=== PATIENT | male | born 2000 | race Caucasian/White ===

== ENCOUNTER 2022-04-02 10:09 | Day surgery (SDC) | payer OTHER ==
[~2022-04-02] VITALS: Ht 177.8 cm; Wt 71.5 kg
[2022-04-02 10:33] VITALS: BP 125/92; PULSE 70; TEMP 97.9
--- NOTE | 2022-04-02 10:35 | NUR ---
LANEY Kim was notified that the patient had 10 oz of water between 7621-4911 this morning. He verbalized understanding and stated that the patient can't have his procedure done before 1200 due to his water intake.
[2022-04-02] MEDS ORDERED: PROTONIX20 MG PO (11:07)
[2022-04-02 12:47] VITALS: BP 122/72; PULSE 69
--- NOTE | 2022-04-02 12:47 | NUR ---
PATIENT RETURNS TO [facility] PER CART AND TRANSFERS FROM CART TO RECLINER WITH ONE PERSON ASSIST. IV FLUIDS INFUSING RA AND CONVERTED TO INT. TEMP 98.9 AND SATS 98%.
[2022-04-02 13:02] VITALS: BP 120/78; PULSE 61
--- NOTE | 2022-04-02 13:02 | NUR ---
DENIES DIFFICULTY SWALLOWING. IV FLUIDS INFUSING.
[2022-04-02 13:17] VITALS: BP 120/71; PULSE 58
--- NOTE | 2022-04-02 13:17 | NUR ---
OFFERS NO COMPLAINTS.
--- NOTE | 2022-04-02 13:31 | NUR ---
DISMISSAL INSTRUCTIONS GIVEN AND SIGNED. VOICES UNDERSTANDING OF THESE. IV DISCONTINUED AND SITE IS FREE OF REDNESS. RIDE IS HERE.
--- NOTE | 2022-04-02 13:34 | NUR ---
PATIENT DISMISSED TO HOME DRIVEN BY FAMILY MEMBER AND TAKEN TO PRIVATE VEHICLE PER WHEELCHAIR AND ASSISTED INTO CAR WITH INSTRUCTIONS IN HAND.
== END 2022-04-02 13:34 | disposition home or self-care (01) ==
LOC: SDCO 10:09
DX: K29.50 Unspecified chronic gastritis without bleeding (principal); K31.7 Polyp of stomach and duodenum; K21.00 Gastro-esophageal reflux disease with esophagitis, without bleeding
CPT/HCPCS: J2704; J7120